=== PATIENT | male | born 1950 | race Caucasian/White ===

== ENCOUNTER → 2018-01-13 07:57 | Outpatient (CLI) | payer MEDICARE, OTHER, SELFPAY ==
[2018-01-13 09:35] LABS: Blood Urea Nitrogen 17 mg/dL (9-20); Calcium 9.4 mg/dL (8.4-10.2); Carbon Dioxide 30 mmol/L (22-32); Chloride 104 mmol/L (98-107); Cholesterol 196 mg/dL (140-199); Estimated Glomerular Filt Rate > 60.0 mL/min (>60); Glucose 92 mg/dL (80-110); HDL Cholesterol 76 mg/dL (40-60); HEMOLYSIS < 15 (0-50); LDL Cholesterol Calculated 103 mg/dL (<100); Potassium 4.4 mmol/L (3.4-5.1); Sodium 144 mmol/L (137-145); Triglycerides 87 mg/dL (35-150)
[2018-01-13 10:08] LABS: Prostate Specific Antigen Scrn 1.49 ng/mL (0.1-4.0)
== END ==
PROVIDERS: PCP Family Medicine; Visit Provider Family Medicine
DX: E78.2 Mixed hyperlipidemia (principal); Z12.5 Encounter for screening for malignant neoplasm of prostate
CPT/HCPCS: 36415; 80048; 80061; G0103

== ENCOUNTER → 2021-06-04 08:49 | Outpatient (CLI) | payer MEDICARE, OTHER, SELFPAY ==
[2021-06-04 10:14] LABS: Add Manual Diff / Slide Review NO; Basophils Absolute Auto 0 /uL (0-100); Basophils Percent Auto 0.2 % (0-2); Eosinophils Absolute Auto 100 /uL (0-450); Eosinophils Percent Auto 1.2 % (2-4); Hematocrit 42.7 % (41-53); Hemoglobin 14.3 g/dL (13.5-17.5); Lymphocytes Absolute Auto 1700 /uL (1100-4500); Mean Corpuscular HGB Conc 33.4 % (30-36); Mean Corpuscular Hemoglobin 31.1 PG (26-34); Mean Corpuscular Volume 92.9 fL (80-100); Monocytes Absolute Auto 400 /uL (0-900); Monocytes Percent Auto 7.7 % (3-14); Neutrophils Absolute Auto 3400 /uL (1500-7000); Neutrophils Percent Auto 60.9 % (50-75); Platelet Count 153 X10^3/uL (150-400); Red Blood Cell Count 4.59 X10^6/uL (4.5-5.9); Red Cell Distribution Width 14.1 % (11.6-14.8); White Blood Cell Count 5.6 X10^3/uL (4.5-11.0)
[2021-06-04 10:28] LABS: Alanine Aminotransferase 30 IU/L (<50); Albumin Globulin Ratio 1.5 (1.0-2.8); Alkaline Phosphatase 58 U/L (38-126); Aspartate Aminotransferase 35 IU/L (17-59); BUN Creatinine Ratio 16.4 (6-22); Bilirubin Total 0.7 mg/dL (0.2-1.3); Blood Urea Nitrogen 18 mg/dL (9-20); Calcium 8.9 mg/dL (8.4-10.2); Carbon Dioxide 30 mmol/L (22-32); Chloride 108 mmol/L (98-107); Cholesterol 206 mg/dL (140-199); Estimated Glomerular Filt Rate > 60 mL/min (>60); Globulin 2.7 g/dL (1.7-4.1); Glucose 96 mg/dL (80-110); HDL Cholesterol 92 mg/dL (40-60); HEMOLYSIS < 15 (0-50); LDL Cholesterol Calculated 97 mg/dL (<100); Potassium 4.4 mmol/L (3.4-5.1); Sodium 140 mmol/L (137-145); Total Protein 6.7 g/dL (6.3-8.2); Triglycerides 85 mg/dL (35-150)
[2021-06-04 10:57] LABS: TSH w/ Reflex to FT4 2.98 uIU/mL (0.47-4.68)
== END ==
PROVIDERS: PCP Family Medicine; Referring Provider Family Medicine; Visit Provider Family Medicine
DX: R42 Dizziness and giddiness (principal); Z13.220 Encounter for screening for lipoid disorders
CPT/HCPCS: 36415; 80053; 80061; 84443; 85025

== ENCOUNTER 2023-02-25 10:33 | Emergency (ER) | payer MEDICARE, OTHER, SELFPAY ==
[2023-02-25] VITALS (11 sets, daily range): BP systolic 139–186; BP diastolic 69–101; PULSE 58–101; RESP 14–22; TEMP 36.4; O2SAT 93–99; BMI 27.1
--- NOTE | 2023-02-25 10:46 | DI.RAD.S_ITS ---
PROCEDURE: XR CHEST 1V INDICATIONS: chest pain TECHNIQUE: One view of the chest was acquired. COMPARISON: None. FINDINGS: Surgical changes and devices: None. Lungs and pleura: Lungs are clear. No pleural effusions or pneumothorax. Mediastinum: Mediastinal contours appear normal. Heart size is normal. Bones and chest wall: No suspicious bony lesions. Overlying soft tissues appear unremarkable. IMPRESSION: No acute cardiopulmonary abnormality is seen. Dictated by: Jovana Gu M.D. on 02/25/2023 at 11:14 Approved by: Jovana Gu M.D. on 02/25/2023 at 11:14
[2023-02-25 11:20] LABS: PTT Partial Thromboplastin Tim 29 SECONDS (25.1-36.5)
[2023-02-25 11:21] LABS: Add Manual Diff / Slide Review NO; Basophils Absolute Auto 0 /uL (0-100); Basophils Percent Auto 0.3 % (0-2); Eosinophils Absolute Auto 0 /uL (0-450); Eosinophils Percent Auto 0.5 % (2-4); Hematocrit 43.7 % (41-53); Lymphocytes Absolute Auto 1700 /uL (1100-4500); Lymphocytes Percent Auto 22.5 % (25-40); Mean Corpuscular HGB Conc 34.4 % (30-36); Mean Corpuscular Hemoglobin 31.4 PG (26-34); Mean Corpuscular Volume 91.2 fL (80-100); Monocytes Absolute Auto 500 /uL (0-900); Monocytes Percent Auto 6.2 % (3-14); Neutrophils Absolute Auto 5300 /uL (1500-7000); Neutrophils Percent Auto 70.5 % (50-75); Platelet Count 155 X10^3/uL (150-400); Red Blood Cell Count 4.79 X10^6/uL (4.5-5.9); Red Cell Distribution Width 13.7 % (11.6-14.8); White Blood Cell Count 7.5 X10^3/uL (4.5-11.0)
[2023-02-25 11:23] LABS: Alanine Aminotransferase 25 IU/L (<50); Albumin 4.2 g/dL (3.5-5.0); Albumin Globulin Ratio 1.4 (1.0-2.8); Alkaline Phosphatase 63 U/L (38-126); Aspartate Aminotransferase 31 IU/L (17-59); BUN Creatinine Ratio 18.9 (6-22); Bilirubin Total 0.8 mg/dL (0.2-1.3); Blood Urea Nitrogen 20 mg/dL (9-20); Calcium 9.8 mg/dL (8.4-10.2); Carbon Dioxide 22 mmol/L (22-32); Chloride 104 mmol/L (98-107); Creatine Kinase 106 U/L (55-170); Estimated Glomerular Filt Rate > 60 mL/min (>60); Globulin 3.1 g/dL (1.7-4.1); Glucose 124 mg/dL (80-110); HEMOLYSIS < 15 (0-50); Lipase 56 U/L (23-300); Magnesium 1.7 mg/dL (1.6-2.3); Potassium 3.7 mmol/L (3.4-5.1); Sodium 134 mmol/L (137-145); Total Protein 7.3 g/dL (6.3-8.2)
[2023-02-25 11:33] LABS: Troponin I < 0.012 ng/mL (0.01-0.034)
--- NOTE | 2023-02-25 12:54 | ED_ITS ---
HPI - Syncope General Chief Complaint: Syncope Stated Complaint: dr chloé gan work up fell hit head/passed out Time Seen by Provider: 02/25/23 12:53 Source: patient Mode of arrival: Ambulatory Limitations: no limitations History of Present Illness HPI narrative: 72-year-old male with history of recent cataract surgery a week ago. Patient had describes a syncopal episode yesterday. He was walking the [facility] loop felt faint states he passed out he started to go to his hands and knees but did not quite make it. Woke up on the ground did hit his head. Patient states he thinks he was out briefly and then walk back to his car. No one saw him when this occurred but he states he had left his car and returned within 20 minutes according to his [place] and had covered 0.8 miles. Patient states he has had similar episodes 2 times before 1 was 4 years ago while hiking [place] got very close to having a syncopal episode but went to his hands and knees and did not lose consciousness in the 2nd time was 2 years ago while walking also at [facility] but going up hill when to his hands and knees before he lost consciousness and recovered. He states he felt fine since then. He states he did not have any symptoms before. He had some mild lightheadedness right as it happened. He states each time has been with exertion such as hiking or walking uphill. Patient states some mild headache, no vision changes other than his recent cataract surgery he is due to have the alternate I tomorrow. Patient states he has never had any workup for it. He states he is on eyedrops for his cataract. No aspirin, no other anticoagulants or medications. Denies any other surgeries besides his cataract surgery. No known drug allergies. No tobacco, 2 beers daily, no recreational drugs. Dr. Aviles is his primary care. He follows with a supervisor central supply Dr. Martines and follows with ophthalmology. Patient reached out to his primary care today because he was concerned his surgery he will be canceled. No long distance travel, no prior history of pulmonary emboli. Reports family history of possible coronary disease in his dad and brother. He is on familiar with any hypertrophic cardiomyopathy type history. Related Data Home Medications Medication Instructions Recorded Confirmed No Known Home Medications 03/06/18 06/01/21 Allergies Allergy/AdvReac Type Severity Reaction Status Date / Time No Known Drug Allergies Allergy Unverified 06/01/21 10:18 Review of Systems Review of Systems ROS Unobtainable: All systems reviewed & are unremarkable except as noted in HPI and below Patient History Social History marital status: number of children: 2 household members: none lives independently: Yes caregiver/support person: No housing: condominium pets and animals: No education level: college occupational status: other other: hiking,outdoors, ball seatbelt use: always helmet use: Yes working smoke detector in home: Yes fire extinguisher in home: No carbon monox detector in home: Yes firearms in home: No Smoking Status: Never smoker second hand exposure: No alcohol intake: current substance use type: does not use during the past year weight has: remained stable well-balanced diet: about half the time daily servings fruits/ve-1 caffeine: Yes eating out: 1-3 times/week Type(s) of exercise: walking frequency: 3-4 times per week duration: 45-60 minutes/day Smoking Status: Never smoker alcohol intake frequency: 0-2 drinks per day Substance Use Type: does not use Exam Narrative Exam Narrative: GENERAL: Alert and oriented x three, male in no acute distress. HEENT: Head normocephalic, atraumatic, EOMI, pupils reactive, face symmetric, moist mucous membranes NECK: Supple, full range of motion CARDIOVASCULAR: Regular rate and rhythm without murmurs, rubs or gallops. No JVD. No swelling bilateral lower extremities. RESPIRATORY: Breath sounds equal bilaterally, no wheezes rales or rhonchi. ABDOMEN: Soft, nontender. Normoactive bowel sounds all 4 quadrants. No guarding or rebound, rigidity, no mass : No CVA tenderness EXTREMITIES: Normal range of motion, no clubbing or edema. Neurovascularly intact NEUROLOGICAL: Cranial nerves II through XII grossly intact. Moving all extremities SKIN: Warm, dry, no petechiae, no rashes or lesions. Initial Vital Signs Initial Vital Signs: Vital Signs Pulse Rate 101 H 02/25/23 10:42 Respiratory Rate 19 02/25/23 10:42 Course Orders Ordered: ED Orders 02/25/23 10:46 XR chest 1V Stat EKG-12 Lead Stat 02/25/23 11:04 Complete Blood Count AUTO DIFF Stat Comprehensive Metabolic Panel Stat Lipase Stat Magnesium Stat PTT Partial Thromboplastin Shravan Stat Prothrombin Time INR Stat Troponin & CK Cardiac Panel Stat Discontinued Medications Aspirin (Aspirin 81 Mg Chew Tab) 324 mg PO NOW ONE Stop: 02/25/23 10:47 Last Admin: 02/25/23 14:08 Dose: Not Given Documented By: DALY Vital Signs Vital signs: Vital Signs - 8 hr 02/25/23 10:42 02/25/23 10:43 02/25/23 10:43 Temperature Pulse Rate 101 H 97 H Respiratory Rate 19 22 Blood Pressure 172/82 H Pulse Oximetry 98 Oxygen Delivery Method 02/25/23 10:46 02/25/23 11:00 02/25/23 11:00 Temperature 97.5 F L Pulse Rate 98 H 93 H Respiratory Rate 14 20 Blood Pressure 186/79 H 168/79 H Pulse Oximetry 99 96 Oxygen Delivery Method Room Air 02/25/23 11:30 02/25/23 11:31 02/25/23 11:31 Temperature Pulse Rate 81 78 Respiratory Rate 21 22 Blood Pressure 150/71 H Pulse Oximetry 93 95 Oxygen Delivery Method 02/25/23 12:44 02/25/23 12:44 02/25/23 13:00 Temperature Pulse Rate 78 64 Respiratory Rate 18 16 Blood Pressure 157/101 H Pulse Oximetry 97 97 Oxygen Delivery Method 02/25/23 13:01 02/25/23 13:01 02/25/23 13:47 Temperature Pulse Rate 64 Respiratory Rate 18 Blood Pressure 158/78 H 154/76 H Pulse Oximetry 97 Oxygen Delivery Method 02/25/23 13:47 02/25/23 14:00 02/25/23 14:00 Temperature Pulse Rate 63 58 L Respiratory Rate 21 16 Blood Pressure 139/69 Pulse Oximetry 98 96 Oxygen Delivery Method Room Air MDM - Syncope Lab Data 02/25/23 11:04 02/25/23 11:04 Labs: Lab Results 02/25/23 Range/Units 11:04 WBC 7.5 (4.5-11.0) X10^3/uL RBC 4.79 (4.5-5.9) X10^6/uL Hgb 15.0 (13.5-17.5) g/dL Hct 43.7 (41-53) % MCV 91.2 (80-100) fL MCH 31.4 (26-34) PG MCHC 34.4 (30-36) % RDW 13.7 (11.6-14.8) % Plt Count 155 (150-400) X10^3/uL Neut % (Auto) 70.5 (50-75) % Lymph % (Auto) 22.5 L (25-40) % Harney % (Auto) 6.2 (3-14) % Eos % (Auto) 0.5 L (2-4) % Baso % (Auto) 0.3 (0-2) % Neut # (Auto) 5300 (9245-7770) /uL Lymph # (Auto) 1700 (5507-2758) /uL Harney # (Auto) 500 (0-900) /uL Eos # (Auto) 0 (0-450) /uL Baso # (Auto) 0 (0-100) /uL PT 11.0 (9.4-12.5) SECONDS INR 1.0 (0.9-1.3) APTT 29 (25.1-36.5) SECONDS Sodium 134 L (137-145) mmol/L Potassium 3.7 (3.4-5.1) mmol/L Chloride 104 (98-107) mmol/L Carbon Dioxide 22 (22-32) mmol/L BUN 20 (9-20) mg/dL Creatinine 1.06 (0.66-1.25) mg/dL Estimated GFR > 60 (>60) mL/min BUN/Creatinine Ratio 18.9 (6-22) Glucose 124 H (80-110) mg/dL Calcium 9.8 (8.4-10.2) mg/dL Magnesium 1.7 (1.6-2.3) mg/dL Total Bilirubin 0.8 (0.2-1.3) mg/dL AST 31 (17-59) IU/L ALT 25 (<50) IU/L Alkaline Phosphatase 63 (38-126) U/L Total Creatine Kinase 106 (55-170) U/L Troponin I < 0.012 (0.01-0.034) ng/mL Total Protein 7.3 (6.3-8.2) g/dL Albumin 4.2 (3.5-5.0) g/dL Globulin 3.1 (1.7-4.1) g/dL Albumin/Globulin Ratio 1.4 (1.0-2.8) Lipase 56 (23-300) U/L Imaging Data Chest x-ray: Radiologist's Impression: [address] [address] XRay Report Signed Patient: Demond Upton MR#: [id number] : 1950 Acct:[id number] Age/Sex: 72 / M Date of Service: 02/25/23 Loc: ED Accession Number: [id number] Procedure: XR chest 1V Ordering Provider: Radha Rednon D.O. PROCEDURE: XR CHEST 1V INDICATIONS: chest pain TECHNIQUE: One view of the chest was acquired. COMPARISON: None. FINDINGS: Surgical changes and devices: None. Lungs and pleura: Lungs are clear. No pleural effusions or pneumothorax. Mediastinum: Mediastinal contours appear normal. Heart size is normal. Bones and chest wall: No suspicious bony lesions. Overlying soft tissues appear unremarkable. IMPRESSION: No acute cardiopulmonary abnormality is seen. Dictated by: Jovana Gu M.D. on 02/25/2023 at 11:14 Approved by: Jovana Gu M.D. on 02/25/2023 at 11:14 ECG Data Attestation: I personally reviewed and interpreted this ECG as follows: Prior ECG tracings: not available for review Interpretation: Sinus rhythm right bundle-branch block, left anterior fascicular block. Rate 88 TX 180 QRS of 162 QTC 500. No priors for comparison. MDM Narrative Medical decision making narrative: 72-year-old male with reported syncopal episode while walking yesterday. Patient presents to today asymptomatic. CBC shows lymphocytes of 22.5 but otherwise normal hemoglobin white count and platelets. Coags are negative sodium is 134 electrolytes otherwise appropriate creatinine is 1.06 similar to prior from May 2021 with a glucose of 124- LFTs negative troponin. Chest x-ray shows no acute change. EKG shows right bundle-branch and left anterior fascicular block. Has not had any priors for comparison that I can find. Patient does not recall be tolerating he had any bundle-branch block but also does not recall ever having an EKG in the past. Patient currently asymptomatic today. [place] appropriate for discharge home but need for follow-up may require Holter monitor or ZIO patch and echo with further workup with primary care as patient has had some episodes in the past but not frequently or with increasing. Discharge Plan Departure Patient Disposition: Home Clinical Impression: Syncope Instructions: DI for Syncope in Adults (Fainting) Activity Restrictions/Additional Instructions: Please follow up with your physician for recheck, call your physician to set up follow-up. They may pursue some additional workup such as Holter monitor or ZIO patch and/or ECHO if you have never had these done before. Please return for new or recurrent symptoms, new chest pain, shortness of breath, lightheadedness or passing out, new swelling in your extremities, severe headaches, altered mental status or other new or concerning changes. Prescriptions: No Action No Known Home Medications Referrals: Alexia Armenta MD [Primary Care Provider] - Stand Alone Forms: Patient Portal/API
== END 2023-02-25 14:36 | disposition home or self-care (01) ==
PROVIDERS: Emergency Provider Emergency Medicine; PCP Family Medicine
DX: R55 Syncope and collapse (principal); S09.90XA Unspecified injury of head, initial encounter; R07.9 Chest pain, unspecified
CPT/HCPCS: 36415; 71045; 80053; 82550; 83690; 83735; 84484; 85025; 85610; 85730; 93005; 93010; 99284

== ENCOUNTER → 2023-03-06 07:05 | Outpatient (CLI) | payer MEDICARE, OTHER, SELFPAY ==
[2023-03-06 07:50] LABS: Add Manual Diff / Slide Review NO; Basophils Absolute Auto 0 /uL (0-100); Basophils Percent Auto 0.5 % (0-2); Eosinophils Absolute Auto 100 /uL (0-450); Eosinophils Percent Auto 1.2 % (2-4); Hematocrit 42.5 % (41-53); Hemoglobin 14.6 g/dL (13.5-17.5); Lymphocytes Absolute Auto 2200 /uL (1100-4500); Mean Corpuscular HGB Conc 34.4 % (30-36); Mean Corpuscular Hemoglobin 31.8 PG (26-34); Mean Corpuscular Volume 92.4 fL (80-100); Monocytes Absolute Auto 600 /uL (0-900); Monocytes Percent Auto 7.7 % (3-14); Neutrophils Absolute Auto 4400 /uL (1500-7000); Neutrophils Percent Auto 60.6 % (50-75); Platelet Count 155 X10^3/uL (150-400); Red Cell Distribution Width 13.6 % (11.6-14.8); White Blood Cell Count 7.2 X10^3/uL (4.5-11.0)
[2023-03-06 08:06] LABS: Alanine Aminotransferase 23 IU/L (<50); Albumin 3.8 g/dL (3.5-5.0); Albumin Globulin Ratio 1.4 (1.0-2.8); Alkaline Phosphatase 61 U/L (38-126); Aspartate Aminotransferase 34 IU/L (17-59); BUN Creatinine Ratio 20.8 (6-22); Bilirubin Total 0.8 mg/dL (0.2-1.3); Blood Urea Nitrogen 21 mg/dL (9-20); Calcium 9.2 mg/dL (8.4-10.2); Carbon Dioxide 25 mmol/L (22-32); Chloride 107 mmol/L (98-107); Cholesterol 182 mg/dL (140-199); Estimated Glomerular Filt Rate > 60 mL/min (>60); Globulin 2.8 g/dL (1.7-4.1); Glucose 93 mg/dL (80-110); HDL Cholesterol 66 mg/dL (40-60); HEMOLYSIS < 15 (0-50); LDL Cholesterol Calculated 99 mg/dL (<100); Potassium 4.2 mmol/L (3.4-5.1); Sodium 138 mmol/L (137-145); Total Protein 6.6 g/dL (6.3-8.2); Triglycerides 86 mg/dL (35-150)
[2023-03-06 08:36] LABS: TSH w/ Reflex to FT4 5.25 uIU/mL (0.47-4.68)
== END ==
LOC: LAB 07:07
PROVIDERS: PCP Family Medicine; Referring Provider Family Medicine; Visit Provider Family Medicine
DX: R55 Syncope and collapse (principal); Z13.9 Encounter for screening, unspecified
CPT/HCPCS: 36415; 80053; 80061; 84439; 84443; 85025

== ENCOUNTER → 2023-03-10 14:52 | Outpatient (CLI) | payer MEDICARE, OTHER, SELFPAY ==
--- NOTE | 2023-03-10 14:53 | DI.CT.S_ITS ---
PROCEDURE: CT HEAD/BRAIN WO/W CON INDICATIONS: Syncope, fall TECHNIQUE: 4.5 mm thick angled axial sections acquired from the foramen magnum to the vertex both before and after the administration of intravenous contrast, with coronal and sagittal reformats. For radiation dose reduction, the following was used: automated exposure control, adjustment of mA and/or kV according to patient size. COMPARISON: None. FINDINGS: Image quality: Mild streak artifact can be seen through the skull base. CSF spaces: Basal cisterns are patent. No extra-axial fluid collections. Ventricles are symmetric in size and shape. Brain: No midline shift. No intracranial bleeds or masses. No abnormal intracranial enhancement. There is cerebral volume loss for age. There is periventricular white matter chronic small vessel ischemic change. There is intracranial internal carotid artery atherosclerosis. Skull and face: Calvarium and visualized facial bones appear intact, without suspicious lesions. Sinuses: Visualized sinuses and mastoids are clear. IMPRESSION: No acute intracranial hemorrhage is seen. No imaging explanation is found for this patient's presenting symptoms. To the limits of CT, no findings of masses or abnormal enhancement can be seen. Dictated by: Derik Quinn M.D. on 03/10/2023 at 15:06 Approved by: Derik Quinn M.D. on 03/10/2023 at 15:08
== END ==
PROVIDERS: PCP Family Medicine; Referring Provider Family Medicine; Visit Provider Family Medicine
DX: R55 Syncope and collapse (principal)
CPT/HCPCS: 70470; Q9967

== ENCOUNTER → 2023-03-13 09:33 | Outpatient (CLI) | payer MEDICARE, OTHER, SELFPAY | LOC: CAR 09:34 | PROVIDERS: PCP Family Medicine; Referring Provider Family Medicine; Visit Provider Family Medicine | DX: R00.2 Palpitations (principal) | CPT/HCPCS: 93246 ==

== ENCOUNTER → 2023-04-02 06:44 | Outpatient (CLI) | payer MEDICARE, OTHER, SELFPAY ==
--- NOTE | 2023-04-02 06:46 | DI.ECHO.S_ITS ---
[facility]---------+ [facility] +---------+ : : [address] : : : : [id number] : : : : Phone: [phone] Echocardiogram Report + + :Name: AISHWARYA CA Study Date: 04/02/2023 Height: 70 in : :[facility] ReadingLocation: Weight: 188 lb : : Gender: Male BSA: 2.0 m2 : :: 1950 Age: 72 yrs BP: 128/84 mmHg: :Reason For Study: SYNCOPE : :Ordering Physician: SUSANNAH, : :JON Performed By: Rosalina Murillo : :Referring: JON DAVALOS : + + Interpretation Summary The left ventricle is mildly dilated. Left ventricular systolic function is moderate to severely reduced. Left ventricular ejection fraction is estimated to be 30 +/- 5%. No obvious LV thrombus. Except basal anterior wall, but basal anterolateral wall, basal inferior septum as well as anterior septum, rest of the LV segments severely hypokinetic to akinetic. The right ventricle is mildly dilated. The right ventricular systolic function is normal. There is moderate mitral regurgitation. There is mild aortic regurgitation. The IVC is of normal diameter and collapses greater than 50% with a sniff. This suggests a low right atrial pressure of 3 mm Hg. Procedure: A two-dimensional transthoracic echocardiogram with color flow and Doppler was performed. The study quality was technically adequate. There is no prior echocardiogram noted for this patient. The heart rate ranged between 59-70 bpm during the study. The patient was in normal sinus rhythm during the exam. The patient had a bundle branch block rhythm during the exam. Left Ventricle: The left ventricle is mildly dilated. There is normal left ventricular wall thickness. There is no thrombus. A false chord is noted (normal variant). Left ventricular ejection fraction is estimated to be 30 +/- 5%. Left ventricular systolic function is moderate to severely reduced. Except basal anterior wall, but basal anterolateral wall, basal inferior septum as well as anterior septum, rest of the LV segments severely hypokinetic to akinetic. Right Ventricle: The right ventricle is mildly dilated. The right ventricular systolic function is normal. Atria: The left atrium is mildly dilated. Right atrial size is normal. There is no Doppler evidence for an interatrial shunt. Mitral Valve: Tented mitral leaflets. The mitral valve leaflets are slightly calcified. There is systolic anterior motion of the chordal apparatus. There is moderate mitral regurgitation. Aortic Valve: The aortic valve is trileaflet. The aortic valve opens well. There is no aortic valve stenosis. There is mild aortic regurgitation. Tricuspid Valve: The tricuspid valve is normal in structure and function. There is trace tricuspid regurgitation. Pulmonary artery pressures cannot be estimated because of the lack of a measurable TR jet velocity. Pulmonic Valve: The pulmonic valve is not well seen, but is grossly normal. There is mild pulmonic regurgitation. Great Vessels: The aortic root is normal size. The dimensions of the ascending aorta are normal. The IVC is of normal diameter and collapses greater than 50% with a sniff. This suggests a low right atrial pressure of 3 mm Hg. Pericardium/ Pleura There is no pericardial effusion. There is no pleural effusion. MMode/2D Measurements & Calculations LVIDd: 5.7 cm LVOT diam: 2.2 cm LVIDs: 4.6 cm Ao root diam: 3.1 cm FS: 20.3 % asc Aorta Diam: 3.3 cm EPSS: 1.6 cm Ao Arch Diam (Prox Trans): 3.1 cm IVSd: 0.82 cm LVPWd: 0.78 cm LV chavez. diameter/BSA (cm/m^2): 2.8 LV sys. diameter/BSA (cm/m^2): 2.2 LA A2 area: 19.3 cm2 RA long axis: 5.0 cm LA A4 area: 17.5 cm2 RA area: 18.5 cm2 LA length (vol): 5.5 cm RA vol: 58.3 ml LA vol: 51.8 ml RA : 28.7 ml/m2 LA vol index: 25.5 ml/m2 IVC diam: 1.3 cm RVD1 (basal): 4.2 cm RVD2 (mid): 3.8 cm TAPSE: 1.6 cm Doppler Measurements & Calculations Ao V2 max: 132.8 cm/sec LVOT Max Kurt: 88.7 cm/sec Ao V2 mean: 99.1 cm/sec LV V1 max P.1 mmHg Ao max P.1 mmHg LV V1 VTI: 18.3 cm Ao mean P.3 mmHg KAMRAN(I,D): 2.3 cm2 Ao V2 VTI: 30.9 cm KAMRAN(V,D): 2.5 cm2 sev ratio: 0.59 KAMRAN indexed to BSA (cm^2/m^2): 1.1 AI P1/2t: 1539 msec AI dec slope: 59.6 cm/sec2 MV E max kurt: 51.7 cm/sec PA V2 max: 78.2 cm/sec MV A max kurt: 85.8 cm/sec PA V2 mean: 56.0 cm/sec MV E/A: 0.60 PA mean P.4 mmHg Med Peak E' Kurt: 4.1 cm/sec PA pr(Accel): 27.6 mmHg E/E' med: 12.5 Lat Peak E' Kurt: 3.5 cm/sec E/E' lat: 14.6 E/e' average: 13.6 MV dec time: 0.27 sec SV(LVOT): 69.6 ml Reading Physician:10:57 AM
== END ==
LOC: ECHO 06:45
PROVIDERS: PCP Family Medicine; Referring Provider Family Medicine; Visit Provider Family Medicine
DX: I08.0 Rheumatic disorders of both mitral and aortic valves (principal); R55 Syncope and collapse
CPT/HCPCS: 93306

== ENCOUNTER → 2023-04-11 12:44 | Outpatient (CLI) | payer MEDICARE, OTHER, SELFPAY ==
[2023-04-11 14:31] LABS: Add Manual Diff / Slide Review NO; Basophils Absolute Auto 0 /uL (0-100); Basophils Percent Auto 0.4 % (0-2); Eosinophils Absolute Auto 0 /uL (0-450); Eosinophils Percent Auto 0.7 % (2-4); Hematocrit 43.2 % (41-53); Hemoglobin 14.8 g/dL (13.5-17.5); Lymphocytes Absolute Auto 1800 /uL (1100-4500); Lymphocytes Percent Auto 26.2 % (25-40); Mean Corpuscular HGB Conc 34.3 % (30-36); Mean Corpuscular Hemoglobin 31.3 PG (26-34); Mean Corpuscular Volume 91.2 fL (80-100); Monocytes Absolute Auto 600 /uL (0-900); Monocytes Percent Auto 8.1 % (3-14); Neutrophils Absolute Auto 4400 /uL (1500-7000); Neutrophils Percent Auto 64.6 % (50-75); Platelet Count 162 X10^3/uL (150-400); Red Blood Cell Count 4.74 X10^6/uL (4.5-5.9); Red Cell Distribution Width 13.7 % (11.6-14.8); White Blood Cell Count 6.9 X10^3/uL (4.5-11.0)
[2023-04-11 14:50] LABS: BUN Creatinine Ratio 17.3 (6-22); Blood Urea Nitrogen 18 mg/dL (9-20); Calcium 9.5 mg/dL (8.4-10.2); Carbon Dioxide 23 mmol/L (22-32); Chloride 107 mmol/L (98-107); Estimated Glomerular Filt Rate > 60 mL/min (>60); Glucose 96 mg/dL (80-110); HEMOLYSIS < 15 (0-50); Potassium 4.1 mmol/L (3.4-5.1); Sodium 137 mmol/L (137-145)
== END ==
PROVIDERS: PCP Family Medicine; Referring Provider Internal Medicine Cardiovascular Disease; Visit Provider Internal Medicine Cardiovascular Disease
DX: R55 Syncope and collapse (principal); I50.22 Chronic systolic (congestive) heart failure
CPT/HCPCS: 36415; 80048; 85025

== ENCOUNTER → 2023-04-25 11:00 | Outpatient (CLI) | payer MEDICARE, OTHER, SELFPAY ==
[2023-04-25 13:26] LABS: Blood Urea Nitrogen 24 mg/dL (9-20); Calcium 9.2 mg/dL (8.4-10.2); Carbon Dioxide 27 mmol/L (22-32); Chloride 106 mmol/L (98-107); Estimated Glomerular Filt Rate > 60 mL/min (>60); Glucose 91 mg/dL (80-110); HEMOLYSIS < 15 (0-50); Potassium 4.7 mmol/L (3.4-5.1); Sodium 139 mmol/L (137-145)
== END ==
PROVIDERS: PCP Family Medicine; Referring Provider Nurse Practitioner Gerontology; Visit Provider Nurse Practitioner Gerontology
DX: I50.22 Chronic systolic (congestive) heart failure (principal); R55 Syncope and collapse; I42.8 Other cardiomyopathies; I25.10 Atherosclerotic heart disease of native coronary artery without angina pectoris
CPT/HCPCS: 36415; 80048

== ENCOUNTER → 2023-05-12 10:59 | Outpatient (CLI) | payer MEDICARE, OTHER, SELFPAY ==
[2023-05-12 13:07] LABS: Alanine Aminotransferase 41 IU/L (<50); Albumin 3.8 g/dL (3.5-5.0); Albumin Globulin Ratio 1.4 (1.0-2.8); Alkaline Phosphatase 66 U/L (38-126); Aspartate Aminotransferase 42 IU/L (17-59); BUN Creatinine Ratio 20.9 (6-22); Bilirubin Total 0.9 mg/dL (0.2-1.3); Blood Urea Nitrogen 24 mg/dL (9-20); Carbon Dioxide 27 mmol/L (22-32); Chloride 108 mmol/L (98-107); Estimated Glomerular Filt Rate > 60 mL/min (>60); Globulin 2.7 g/dL (1.7-4.1); Glucose 92 mg/dL (80-110); HEMOLYSIS < 15 (0-50); Potassium 4.4 mmol/L (3.4-5.1); Sodium 138 mmol/L (137-145); Total Protein 6.5 g/dL (6.3-8.2)
== END ==
PROVIDERS: PCP Family Medicine; Referring Provider Nurse Practitioner Gerontology; Visit Provider Nurse Practitioner Gerontology
DX: I42.8 Other cardiomyopathies (principal); I25.10 Atherosclerotic heart disease of native coronary artery without angina pectoris
CPT/HCPCS: 36415; 80053

== ENCOUNTER → 2023-12-18 11:10 | Outpatient (CLI) | payer MEDICARE, OTHER, SELFPAY ==
[2023-12-18 12:06] LABS: Alanine Aminotransferase 29 IU/L (<50); Albumin 3.9 g/dL (3.5-5.0); Albumin Globulin Ratio 1.6 (1.0-2.8); Alkaline Phosphatase 64 U/L (38-126); Aspartate Aminotransferase 32 IU/L (17-59); BUN Creatinine Ratio 20.4 (6-22); Blood Urea Nitrogen 23 mg/dL (9-20); Calcium 9.5 mg/dL (8.4-10.2); Carbon Dioxide 22 mmol/L (22-32); Chloride 107 mmol/L (98-107); Estimated Glomerular Filt Rate > 60 mL/min (>60); Globulin 2.4 g/dL (1.7-4.1); Glucose 94 mg/dL (80-110); HEMOLYSIS < 15 (0-50); Potassium 4.2 mmol/L (3.4-5.1); Sodium 136 mmol/L (137-145); Total Protein 6.3 g/dL (6.3-8.2)
== END ==
PROVIDERS: PCP Family Medicine; Referring Provider Nurse Practitioner; Visit Provider Nurse Practitioner
DX: I42.8 Other cardiomyopathies (principal)
CPT/HCPCS: 36415; 80053

== ENCOUNTER → 2024-05-16 12:20 | Outpatient (CLI) | payer MEDICARE, OTHER, SELFPAY ==
[2024-05-16 14:32] LABS: Influenza A - CEPHEID Flu A NEGATIVE (NEGATIVE); Influenza B - CEPHEID Flu B NEGATIVE (NEGATIVE); Respiratory Syncytial Virus Negative (Negative)
[2024-05-16 14:39] LABS: COVID-19 CEPHEID 4-PLEX PCR POSITIVE (Negative)
== END ==
PROVIDERS: PCP Family Medicine; Visit Provider Registered Nurse
DX: R05.1 Acute cough (principal)
CPT/HCPCS: 0241U; 87070

== ENCOUNTER → 2024-05-16 12:39 | Outpatient (CLI) | payer MEDICARE, OTHER, SELFPAY ==
--- NOTE | 2024-05-16 12:40 | DI.RAD.S_ITS ---
PROCEDURE: XR CHEST 2V INDICATIONS: Shortness of breath TECHNIQUE: 2 views of the chest were acquired. COMPARISON: [facility], , XR CHEST 1V, 02/25/2023, 11:00. FINDINGS: Surgical changes and devices: None. Lungs and pleura: Lungs are clear. No pleural effusions or pneumothorax. Mediastinum: Mediastinal contours are normal. Heart size is normal. Bones and chest wall: No suspicious bony abnormalities. Soft tissues appear unremarkable. IMPRESSION: No acute cardiopulmonary abnormality is seen. Approved by: Rell Eugene M.D. on 05/16/2024 at 13:49
== END ==
PROVIDERS: PCP Family Medicine; Referring Provider Registered Nurse; Visit Provider Registered Nurse
DX: R06.02 Shortness of breath (principal); R05.1 Acute cough
CPT/HCPCS: 0241U; 71046; 87070